=== PATIENT | male | born 1955 | race African-American/Black ===

== ENCOUNTER → 2018-10-03 | Outpatient (CLI) | payer OTHER ==
--- NOTE | 2018-10-03 11:28 | RAD ---
MRI right shoulder without contrast dated 10/03/2018. No comparison available. CLINICAL INDICATION: Right shoulder pain increasing over the last month. TECHNIQUE: Routine multiplanar multisequence MR imaging performed. FINDINGS: Intermediate T2 signal throughout the supraspinatus, infraspinatus and subscapularis portions the rotator cuff. There is a large full-thickness tear involving the supraspinatus and upper margin of subscapularis measures approximately 4 cm AP dimension. The torn portion of the cuff is retracted to the level of the joint. There is intermediate signal throughout the infraspinatus with articular surface partial tearing. Teres minor is intact. Suprascapular and spinoglenoid notches are clear. There is edema throughout the supraspinatus and subscapularis muscles. No significant muscle atrophy. Moderate hypertrophic change of the AC joint with erosive changes of the distal clavicle and acromion. Subchondral cystic changes are noted. Moderate size heterogeneous subacromial/subdeltoid bursal fluid collection. There is also a small amount of fluid within the AC joint. Unossified os acromiale he. Mild degenerative change at the synchondrosis. Small geyser cyst. Mild increased signal within the substance of the long head biceps tendon. Extra articular portion courses within the bicipital groove. Biceps anchor intact. Blunted morphology of the posterior labrum with some linear signal in the labral substance. Mild degenerative change of the glenohumeral joint with mild thinning of the glenoid articular cartilage. No full-thickness cartilage defect. IMPRESSION: 1. Severe rotator cuff tendinopathy with a large full-thickness tear involving the supraspinatus and upper margin of subscapularis. Torn portion of the cuff is retracted to the level of the joint. 2. Moderate AC joint arthropathy with undersurface spurring and erosive changes along the articular margins of the distal clavicle and acromion. There is a large heterogeneous subacromial/subdeltoid bursal fluid collection with early geyser cyst formation. 3. SLAP tear of the posterior labrum with mild degenerative change and chondral malacia the glenohumeral joint. 4. Mild biceps tendinopathy. Electronically signed by: Roney Fulton MD (10/03/2018 11:25 AM) [id number]
== END | disposition home or self-care (01) ==
LOC: MRI 09:56
PROVIDERS: ATTEND Orthopaedic Surgery Sports Medicine
DX: M75.101 Unspecified rotator cuff tear or rupture of right shoulder, not specified as traumatic (principal); M25.811 Other specified joint disorders, right shoulder; S43.431A Superior glenoid labrum lesion of right shoulder, initial encounter; X58.XXXA Exposure to other specified factors, initial encounter; Y93.89 Activity, other specified; Y92.89 Other specified places as the place of occurrence of the external cause; Y99.8 Other external cause status
CPT/HCPCS: 73221

== ENCOUNTER 2019-08-01 00:12 | Emergency (ER) | payer OTHER ==
[~2019-08-01] VITALS: Ht 175.3 cm; Wt 113.4 kg
[2019-08-01 02:00] VITALS: BP 160/94
[2019-08-01] MEDS: KETOROLAC 60 MG/2 ML VIAL. IM ONE (03:16)
[2019-08-01] MEDS ORDERED: HYDR-3164 PO (03:17)
--- NOTE | 2019-08-01 03:17 | PHYS DOC ---
Past Medical History Past Medical History: Hypertension Past Surgical History: Hip Replacement Additional Past Surgical Histo: BACK SURGERY, SHOULDER SURGERY Alcohol Use: Occasionally Drug Use: None Adult General Chief Complaint Chief Complaint: UPPER EXTREMITY PAIN HPI HPI 64yo male who presents to the ER with complaints of right shoulder pain sharp. Patient states he injured his shoulder after falling down. Patient with history of right rotator cuff surgery. Patient states he is having pain with movements, states he is unable to push things at work 2/2 pain and weakness. Paitent denies numbness or tingling on exam. Movements and resistance makes it worse. States nothing makes better. Patient denies headache, chest pain, sob, abdominal pain. Review of Systems Review of Systems Constitutional: Denies fever or chills [] Respiratory: Denies cough or shortness of breath [] Cardiovascular: No additional information not addressed in HPI [] GI: Denies abdominal pain, nausea, vomiting, bloody stools or diarrhea [] Musculoskeletal: righ shoulder pain Neurologic: Denies headache, focal weakness or sensory changes [] All other systems were reviewed and found to be within normal limits, except as documented in this note. Current Medications Current Medications Current Medications Medications (Trade) Dose Ordered Sig/Wil Start Time Stop Time Status Last Admin Dose Admin Ketorolac Tromethamine (Toradol Im) 60 mg 1X ONCE 08/01/19 03:30 08/01/19 03:23 DC 08/01/19 03:16 60 MG Allergies Allergies Allergies Coded Allergies Type Severity Reaction Last Updated Verified No Known Drug Allergies 08/01/19 No Physical Exam Physical Exam Constitutional: Well developed, well nourished, no acute distress, non-toxic appearance. [] HENT: Normocephalic, atraumatic, bilateral external ears normal, oropharynx moist, no oral exudates, nose normal. [] Eyes: PERRLA, EOMI, conjunctiva normal, no discharge. [] Neck: Normal range of motion, no tenderness, supple, no stridor. [] Cardiovascular:Heart rate regular rhythm, no murmur [] Lungs & Thorax: Bilateral breath sounds clear to auscultation [] Abdomen: Bowel sounds normal, soft, no tenderness, no masses, no pulsatile masses. [] Skin: Warm, dry, no erythema, no rash. [] Back: No tenderness, no CVA tenderness. [] Extremities: No tenderness, no cyanosis, no clubbing, ROM intact, no edema. [] Neurologic: Alert and oriented X 3, normal motor function, normal sensory function, no focal deficits noted. [] Psychologic: Affect normal, judgement normal, mood normal. [] Current Patient Data Vital Signs Vital Signs Date Time Temp Pulse Resp B/P (MAP) Pulse Ox O2 Delivery O2 Flow Rate FiO2 08/01/19 02:00 97.4 88 17 160/94 (116) 98 Room Air 97.4 EKG EKG [] Radiology/Procedures Radiology/Procedures [Imaging wet read with possible AC separation - referred to ortho Course & Med Decision Making Course & Med Decision Making Pertinent Labs and Imaging studies reviewed. (See chart for details) []64yo male who presents to the ER with complaints of right shoulder pain sharp. Patient states he injured his shoulder after falling down. Patient with history of right rotator cuff surgery. Patient states he is having pain with movements, states he is unable to push things at work 2/2 pain and weakness. Paitent denies numbness or tingling on exam. Movements and resistance makes it worse. States nothing makes better. Patient denies headache, chest pain, sob, abdominal pain. Imaging reviewed Shoulder with possible AC separation grade 2 Toradol IM provided for pain Recommend sling and ortho follow up as outpatient Discussed dc with patient/family Tim Disclaimer Tim Disclaimer This electronic medical record was generated, in whole or in part, using a voice recognition dictation system. Departure Departure Impression: Primary Impression: AC separation, type 2 Disposition: 01 HOME, SELF-CARE Condition: STABLE Referrals: ELENA RUFFIN MD (PCP) EVELYN PADILLA MD Patient Instructions: Acromioclavicular Separation with Rehab-[facility] Additional Instructions: Recommend follow up with PCP 3 - 5 days Return to the ER with worsening symptoms, intractable pain, fever, altered mental status Tylenol/Motrin as needed for pain Take pain medications as prescribed [place] rx provided upon discharge for pain Recommend calling ortho for follow up Sling in place Scripts Hydrocodone/Apap 5-325 (NORCO 5-325 TABLET) 1 Each Tablet 1-2 TAB PO Q4-6HRS, #20 TAB Prov: HERI BAKER MD 08/01/19 Problem Qualifiers Primary Impression: AC separation, type 2 Encounter type: initial encounter Laterality: right Qualified Codes: S43.101A - Unspecified dislocation of right acromioclavicular joint, initial encounter HERI BAKER MD Aug 01, 2019 03:17
--- NOTE | 2019-08-01 03:19 | RAD ---
Right shoulder AP and scapular Y x-rays 3 views HISTORY: Fall, right shoulder pain. FINDINGS: Arthrosis of the acromioclavicular joint with clavicle osteophyte and acromion spurring stable to prior x-rays. No fracture. No dislocation. IMPRESSION: No acute osseous injury. Electronically signed by: Maurice Pat MD (08/01/2019 3:17 AM) [facility]
== END 2019-08-01 03:16 | disposition home or self-care (01) ==
LOC: ER 00:12
DX: S43.101A Unspecified dislocation of right acromioclavicular joint, initial encounter (principal); I10 Essential (primary) hypertension; Z98.890 Other specified postprocedural states; Z96.649 Presence of unspecified artificial hip joint; W18.39XA Other fall on same level, initial encounter; Y93.89 Activity, other specified; Y92.89 Other specified places as the place of occurrence of the external cause; Y99.8 Other external cause status
CPT/HCPCS: 73030; 96372; 99284; J1885

== ENCOUNTER 2019-08-29 05:53 | Day surgery (SDC) | payer OTHER ==
[~2019-08-29] VITALS: Ht 175.3 cm; Wt 115.2 kg
[~2019-08-29 05:53] MED LIST: ALLO100T PO; AMLO5TAB10 PO; HYDR-3164 PO; LISI1TAB20 PO
[2019-08-29] MEDS ORDERED: ceFAZolin SODIUM 3 GM in IV DEXTROSE 5% 100ML 100 ML IV PRN (06:00)
[2019-08-29] MEDS ORDERED: fentaNYL PF VIAL 100 MCG/2 ML VIAL IV PRN (07:00)
[2019-08-29] MEDS ORDERED: PROCHLORPERAZINE 10 MG/2 ML VIAL. IV PRN (07:00)
[2019-08-29] MEDS ORDERED: MORPHINE SULFATE 2 MG/ML VIAL. IV PRN (07:00)
[2019-08-29] MEDS ORDERED: HYDROmorphone 2 MG/ML VIAL IV PRN (07:00)
[2019-08-29] MEDS ORDERED: LIDOCAINE 1% PF 2 ML VIAL. ID PRN (07:00)
[2019-08-29] MEDS ORDERED: IV RINGERS,LACTATED 1000ML 1,000 ML IV SCH (07:00)
[2019-08-29] MEDS ORDERED: ONDANSETRON PF 4 MG/2 ML VIAL. IV PRN (07:00)
[2019-08-29] MEDS ORDERED: MIDAZOLAM HCL/PF 2 MG/2 ML VIAL. ONE ×3 (07:08→07:12)
[2019-08-29] MEDS ORDERED: ROPIVacaine 0.5% PF 20 ML VIAL. ONE (07:08)
[2019-08-29] MEDS ORDERED: GLYCOPYRROLATE 1 MG/5 ML VIAL. ONE (07:12)
[2019-08-29] MEDS ORDERED: EPINEPHrine VIAL 30 MG/30 ML VIAL ONE (07:14)
[2019-08-29] MEDS ORDERED: LIDOCAINE 1% Multi-Dose 20 ML VIAL. ONE (07:14)
[2019-08-29] MEDS ORDERED: BUPIVACAINE MPF 0.5% 30 ML VIAL. ONE (07:14)
[2019-08-29] MEDS ORDERED: PROPOFOL 20 ML IV ONE (07:16)
[2019-08-29] MEDS ORDERED: PROPOFOL 0 ML IV ONE (07:16)
[2019-08-29] MEDS ORDERED: DEXAMETHASONE SOD PHOS 4 MG/ML VIAL ONE (07:17)
[2019-08-29] MEDS ORDERED: SEVOFLURANE 61 TO 120 MINUTES. IH ONE (07:17)
[2019-08-29] MEDS ORDERED: ONDANSETRON PF 4 MG/2 ML VIAL. ONE (07:17)
[2019-08-29] MEDS ORDERED: LIDOCAINE 2% PF 5 ML VIAL. ONE (07:17)
[2019-08-29] MEDS ORDERED: PHENYLEPHRINE 10 MG/ML VIAL. ONE (07:17)
[2019-08-29] MEDS ORDERED: KETOROLAC 30 MG/ML VIAL. ONE (07:17)
[2019-08-29] MEDS ORDERED: fentaNYL PF VIAL 100 MCG/2 ML VIAL ONE ×2 (08:13→09:37)
--- NOTE | 2019-08-29 09:10 | PDOC4 ---
Operative Note Operative Note Date of procedure: 08/29/2019 Surgeon: Paolo Palencia Thermo Processor: Ravinder Moya, board certified orthodontist Preoperative diagnosis: Right shoulder rotator cuff tear Postoperative diagnosis: right shoulder rotator cuff tear, complete Procedure performed: Arthroscopic right shoulder rotator cuff repair Anesthesia: Gen. plus regional nerve block Findings: #1 labrum was intact circumferentially with very minor scuffing posteriorly. #2 biceps was unremarkable #3 glenohumeral cartilage was showed grade 1-2 changes #4 he had a large full-thickness supraspinatus and infraspinatus tear #5 no loose bodies #6 upper border of subscapularis was tore, and quite fixed in position given his prior open pec repair Blood loss: 10mL Components inserted: Salmer[employer] NephVacation View Helacoil anchor x 3 Reason for procedure: Patient is a very gentleman who has had shoulder pain for years. Clinical and radiographic examination, including MRI were consistent with the preoperative diagnosis. Due to his symptoms and dysfunction, we had a discussion of the risks, benefits, alternatives the above surgery and he wished to proceed. Description of procedure: Patient was greeted in the preoperative holding area where the correct extremity was verified and marked. They were taken to the preoperative holding area where the anesthesiology team placed a regional nerve block. The patient was then taken back to the operative suite and antibiotics were started as they were brought back. Once in the operative room, the patient was transferred gently supine to the operating room table after successful induction of a general anesthetic. After this, he was sat up in a beachchair position maintaining his C-spine in neutral position, large pad under his legs, he was secured to the bed. We then prepped and draped his right upper extremity and shoulder girdle in our usual sterile fashion, we conducted our standard preoperative timeout. I palpated and marked surface anatomy for my planned portal sites. I then used a spinal needle to localize a posterior superior portal and incised skin in accordance with this. After this, I introduced the blunt arthroscopic trocar into the glenohumeral joint followed by the camera. I used a spinal needle to localize an anterosuperior portal and incised skin in accordance with this. I then introduced my arthroscopic probe and conducted my diagnostic arthroscopy with the above-noted findings. I then created a lateral portal under spinal needle localization and debrided the leading edge of the cuff followed by preparing my footprint. I then used a cuff grasper, a lot of the tendon was mobile. However the leading edge and subscapularis were quite fixed in position. I used the cautery device to try to mobilize it further. After this, I repositioned the camera into the subacromial space and performed a bursectomy with combination of shaver and electrocautery device. I used a spinal needle to localize an accessory anterolateral and posterolateral portals for suture management. I then identified the rotator cuff tear and I debrided the pathologic tendon and continued to prepare my footprint. I then placed my helacoil anchors and shuttled limbs through in a simple configuration. I tied these down with arthroscopic knot-tying techniques. The anterior portion of this tear did not hold any suture and I was unable to repair it. The tear that I had been able to repair was stable to probing and to gentle rotation of the arm. I then removed all loose bony debris and the excess arth roscopic fluid. I took my final pictures prior to this. After this, all the excess fluid and instrumentation was removed. The portals were closed with simple interrupted 3-0 nylon. Sterile dressing was applied followed by an abduction pillow sling. Patient tolerated surgery well. No complications. At the conclusion, he was laid supine and transferred gently supine to the recovery r oom cart and taken to the PACU in a stable and extubated condition. Postoperative plan is discharge him home, nonweightbearing for 6 weeks. Well get him started on physical therapy. He will follow up with me in 2 weeks, sooner should a problem arise. PAOLO PALENCIA II, MD Aug 29, 2019 09:10
--- NOTE | 2019-08-29 09:12 | DISCH ---
DISCHARGE INSTRUCTIONS Condition on Discharge Condition on Discharge: Stable Activity After Discharge Activity Instructions for Disc: Other ROM activity Other activity instructions: arm to remain in sling Bathing Instructions: Shower-keep dressing dry Weight Bearing Status after Di: Non weight bearing Diet after Discharge Diet after Discharge: Regular Wound Incision Care Wound/Incision Care: Ice to area for comfort, Change dressing Other wound/incision instructi: ok to change dressing after 2 days Contacting the DRKeely after DC Call your doctor for: Concerns you may have Follow-Up Follow up with: Stephen in 2 wks TEJAS PALENCIA II, MD Aug 29, 2019 09:12
[2019-08-29] MEDS ORDERED: DOCU-109 PO (09:31)
[2019-08-29] MEDS ORDERED: OXYC-325 PO (09:32)
[2019-08-29] MEDS ORDERED: ONDA4TAB7 PO (09:32)
[2019-08-29] MEDS: fentaNYL PF VIAL 100 MCG/2 ML VIAL IV PRN ×2 (09:42→10:05)
[2019-08-29] MEDS ORDERED: oxyCODONE/APAP 5/325 1 TAB TABLET PO ONE (09:45)
[2019-08-29 10:30] VITALS: BP 169/97
[2019-08-30] MEDS ORDERED: ceFAZolin SODIUM 3 GM in IV DEXTROSE 5% 100ML 100 ML IV PRN (06:00)
== END 2019-08-29 11:15 | disposition home or self-care (01) ==
LOC: SURG 05:53
PROVIDERS: ATTEND Orthopaedic Surgery Sports Medicine
DX: M75.121 Complete rotator cuff tear or rupture of right shoulder, not specified as traumatic (principal); I10 Essential (primary) hypertension; G89.29 Other chronic pain; Z96.641 Presence of right artificial hip joint; Z72.89 Other problems related to lifestyle; Z88.1 Allergy status to other antibiotic agents; Z79.899 Other long term (current) drug therapy
CPT/HCPCS: 29827; 36415; 64415; 82306; A7015; C1713; C1782; J0171; J1100; J1885; J2001; J2250; J2405; J2704; J2795; J3010; J3490

== ENCOUNTER 2020-04-23 23:41 | Emergency (ER) | payer OTHER ==
[~2020-04-23] VITALS: Ht 177.8 cm; Wt 113.6 kg
[~2020-04-23 23:41] MED LIST changes: +DOCU-109 PO; +ONDA4TAB7 PO; +OXYC-325 PO
[2020-04-24 00:03] VITALS: BP 182/96
[2020-04-24] MEDS ORDERED: HYDROcodone/APAP 5/325MG 1 TAB TABLET PO ONE ×2 (00:45→05:15)
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
--- NOTE | 2020-04-24 02:51 | RAD ---
Left hand 3 views: Reason for examination: Injured third digit There appears to be a fracture involving the head of the third metacarpal bone with mild displacement. No other site of fracture or dislocation is seen. Bone density is normal. No abnormal periosteal reaction is seen. IMPRESSION: Fracture involving the head of the third metacarpal bone with mild displacement. Electronically signed by: Mily Bolivar MD (04/24/2020 2:48 AM) [facility]
[2020-04-24] MEDS ORDERED: HYDR-3164 PO (04:29)
== END 2020-04-24 01:05 | disposition home or self-care (01) ==
LOC: ER 23:41
DX: S62.333A Displaced fracture of neck of third metacarpal bone, left hand, initial encounter for closed fracture (principal); S60.10XA Contusion of unspecified finger with damage to nail, initial encounter; I10 Essential (primary) hypertension; Z88.2 Allergy status to sulfonamides; W23.0XXA Caught, crushed, jammed, or pinched between moving objects, initial encounter; Y93.89 Activity, other specified; Y92.89 Other specified places as the place of occurrence of the external cause; Y99.8 Other external cause status
CPT/HCPCS: 11740; 29125; 73120; 99284

== ENCOUNTER 2020-06-05 13:33 | Emergency (ER) | payer OTHER ==
[~2020-06-05] VITALS: Ht 175.3 cm; Wt 113.0 kg
[~2020-06-05 13:33] MED LIST changes: +AMLO-186 PO; -AMLO5TAB10 PO
[2020-06-05 13:56] VITALS: BP 171/93
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
[2020-06-05] MEDS ORDERED: CYCL10TA2 PO (15:44)
== END 2020-06-05 16:00 | disposition home or self-care (01) ==
LOC: ER 13:33
DX: R07.81 Pleurodynia (principal); M25.511 Pain in right shoulder; G89.11 Acute pain due to trauma; R51.9 Headache, unspecified; H93.11 Tinnitus, right ear; I10 Essential (primary) hypertension; Z88.2 Allergy status to sulfonamides; V46.4XXA Person boarding or alighting a car injured in collision with other nonmotor vehicle, initial encounter; Y92.488 Other paved roadways as the place of occurrence of the external cause; Y93.89 Activity, other specified; Y99.8 Other external cause status
CPT/HCPCS: 70450; 71101; 72125; 73030; 99285-25

== ENCOUNTER 2020-12-30 05:26 | Emergency (ER) | payer OTHER ==
[~2020-12-30] VITALS: Ht 175.3 cm; Wt 111.7 kg
[~2020-12-30 05:26] MED LIST changes: +CYCL10TA2 PO
--- NOTE | 2020-12-30 06:54 | ED.ADGEN ---
Past Medical History Past Medical History: High Cholesterol, Hypertension Past Surgical History: Hip Replacement Additional Past Surgical Histo: BACK SURGERY, SHOULDER SURGERY Smoking Status: Never Smoker Alcohol Use: Occasionally Drug Use: None General Adult EDM: Chief Complaint: LOWER EXT PAIN HPI: HPI: Patient is a 65 year old male coming in for left ankle pain and swelling over the past 3 weeks. Patient is unsure if he injured it. States he works around [employer] a lot and might of stepped on it wrong or dropped something on it. Says he has occasional shooting pains especially with bearing weight around his ankle. Denies any calf pain or swelling. Review of Systems: Review of Systems: All other systems within normal limits except for as noted in the HPI Allergies: Allergies: Allergies Coded Allergies Type Severity Reaction Last Updated Verified Sulfa (Sulfonamide Antibiotics) Allergy Intermediate Hives 08/29/19 Yes Physical Exam: PE: Constitutional: Well developed, well nourished, no acute distress, non-toxic appearance. [] HENT: Normocephalic, atraumatic, bilateral external ears normal, nose normal. [] Eyes: PERRLA, conjunctiva normal, no discharge. [] Neck: No rigidity, supple, no stridor. [] Cardiovascular: Regular rate and rhythm, brisk cap refill [] Lungs & Thorax: Non labored symmetric respirations, no tachypnea or respiratory distress [] Abdomen: Soft, nondistended. Skin: Warm, dry, no erythema, no rash. [] Back: Unremarkable Extremities: No deformities, range of motion grossly intact, no lower extremity edema. Swelling around left ankle, tenderness over bilateral malleoli, Achilles tendon intact. [] Neurologic: Alert and oriented X 3, no focal deficits noted. [] Psychologic: Affect normal, judgement normal, mood normal. [] Current Patient Data: Vital Signs: Vital Signs Date Time Temp Pulse Resp B/P (MAP) Pulse Ox O2 Delivery O2 Flow Rate FiO2 12/30/20 05:45 98.5 87 18 205/131 (155) 97 Room Air 98.5 EKG: EKG: [] Heart Score: C/O Chest Pain: No Risk Factors: Risk Factors: DM, Current or recent (<one month) smoker, HTN, HLP, family history of CAD, obesity. Risk Scores: Score 0 - 3: 2.5% MACE over next 6 weeks - Discharge Home Score 4 - 6: 20.3% MACE over next 6 weeks - Admit for Clinical Observation Score 7 - 10: 72.7% MACE over next 6 weeks - Early Invasive Strategies Radiology/Procedures: Radiology/Procedures: [facility] [address] [place] [address] IMAGING REPORT Signed PATIENT: KITA VAZQUEZ ACCOUNT: [id number] : 1955 LOCATION: ER AGE: 65 SEX: M EXAM STATUS: REG ER ORD. PHYSICIAN: NAVYA HOUSE MD REASON: pain, swelling, no injury PROCEDURE: ANKLE LEFT 3V Study: XR EXAM OF ANKLE_LEFT 3V Indication: Pain and swelling. Comparison: None. Findings: No acute fracture, periostitis or erosive change. Degenerative changes at the ankle with spurring along the tibial plafond. Chronic spurring and ossific focus at the dorsum of the navicular. Longitudinal mineralization at the Achilles insertion. Nonspecific edematous soft tissues at the lower leg through the ankle. There is some edema of Kager's fat. Impression: 1. No acute osseous abnormality. 2. Edematous soft tissues along the lower leg through the ankle and seen along the dorsum of the foot which is nonspecific for bland edema or cellulitis. The distinction would be better made clinically. No retained radiopaque foreign body. 2. Scattered arthrosis without joint space collapse. Electronically signed by: CLARA GILLIS MD (12/30/2020 7:14 AM) [facility] DICTATED and SIGNED BY: CLARA GILLIS MD DATE: 12/30/20 [id number] [] Course & Med Decision Making: Course & Med Decision Making No calf tenderness or swelling beyond left ankle joint to suggest underlying DVT. Joint is not erythematous or warm suggesting inflammatory or infectious process. Likely due to arthritic process and microtrauma. Discussed return precautions and follow-up with orthopedics or primary care. Tim Disclaimer: Tim Disclaimer: This electronic medical record was generated, in whole or in part, using a voice recognition dictation system. Departure Departure Impression: Primary Impression: Left ankle pain Disposition: HOME / SELF CARE / HOMELESS Condition: STABLE Referrals: ELENA RUFFIN MD (PCP) Patient Instructions: Elastic Bandage and RICE Scripts Naproxen (NAPROXEN) 500 Mg Tablet 1 TAB PO BID for pain for 10 Days, #20 TAB 0 Refills Prov: NAVYA HOUSE MD 12/30/20 NAVYA HOUSE MD Dec 30, 2020 06:54
--- NOTE | 2020-12-30 07:16 | RAD ---
Study: XR EXAM OF ANKLE_LEFT 3V Indication: Pain and swelling. Comparison: None. Findings: No acute fracture, periostitis or erosive change. Degenerative changes at the ankle with spurring chrissie ng the tibial plafond. Chronic spurring and ossific focus at the dorsum of the navicular. Longitudina l mineralization at the Achilles insertion. Nonspecific edematous soft tissues at the lower leg throu gh the ankle. There is some edema of Kager's fat. Impression: 1. No acute osseous abnormality. 2. Edematous soft tissues along the lower leg through the ankle and seen along the dorsum of the foot which is nonspecific for bland edema or cellulitis. The distinction would be better made clinically. No retained radiopaque foreign body. 2. Scattered arthrosis without joint space collapse. Electronically signed by: CLARA GILLIS MD (12/30/2020 7:14 AM) [facility]YA
[2020-12-30] MEDS ORDERED: NAPR-514 PO (07:29)
[2020-12-30 07:35] VITALS: BP 169/94
== END 2020-12-30 07:48 | disposition home or self-care (01) ==
LOC: ER 05:26
DX: M25.572 Pain in left ankle and joints of left foot (principal); G89.11 Acute pain due to trauma; E78.00 Pure hypercholesterolemia, unspecified; I10 Essential (primary) hypertension; Z88.2 Allergy status to sulfonamides; W22.8XXA Striking against or struck by other objects, initial encounter; Y93.89 Activity, other specified; Y92.89 Other specified places as the place of occurrence of the external cause; Y99.8 Other external cause status
CPT/HCPCS: 73610; 99283

== ENCOUNTER → 2021-01-05 | Outpatient (CLI) | payer OTHER ==
[2020-12-30 07:35] VITALS: BP 169/94
[~2021-01-05] MED LIST changes: +NAPR-514 PO
[2021-01-05 09:35] LABS: CALCIUM 8.5 mg/dL (8.5-10.1); CREATININE 0.9 mg/dL (0.7-1.3); GFR 102.5; POTASSIUM 3.3 mmol/L (3.5-5.1)
== END ==
LOC: LAB 08:23
PROVIDERS: ATTEND Family Medicine
DX: S63.8X2A Sprain of other part of left wrist and hand, initial encounter (principal); R73.03 Prediabetes; F41.1 Generalized anxiety disorder; X58.XXXA Exposure to other specified factors, initial encounter; Y93.89 Activity, other specified; Y92.89 Other specified places as the place of occurrence of the external cause; Y99.8 Other external cause status
CPT/HCPCS: 36415; 80048; 83036; 85651